=== PATIENT | male | born 1995 | race Caucasian/White ===

== ENCOUNTER 2017-11-28 12:35 | Emergency (ER) | payer OTHER, MEDICAID ==
[~2017-11-28] VITALS: Ht 175.3 cm; Wt 103.0 kg
[2017-11-28] MEDS ORDERED: [UNRECOGNIZED DRUG - OTHER] (12:52)
[2017-11-28 13:30] LABS: CLARITY URINE CLEAR (CLEAR); COLOR URINE DARK YELLOW (YELLOW); KETONES URINE NEGATIVE (NEGATIVE); LEUKOCYTE ESTERASE URINE NEGATIVE (NEGATIVE); NITRITE URINE NEGATIVE (NEGATIVE); OCCULT BLOOD URINE NEGATIVE (NEGATIVE); PROTEIN URINE NEGATIVE (NEGATIVE); SPECIFIC GRAVITY URINE 1.026 (1.005-1.030)
[2017-11-28 18:53] LABS: *AMPHETAMINES SCREEN URINE NEGATIVE (NEGATIVE); *BARBITURATES SCREEN URINE NEGATIVE (NEGATIVE); *BENZODIAZEPINES SCREEN URINE NEGATIVE (NEGATIVE); *COCAINE SCREEN URINE NEGATIVE (NEGATIVE)
[2017-11-28 18:54] LABS: CANNABINOID URINE SCREEN NEGATIVE (NEGATIVE); METHADONE URINE SCREEN NEGATIVE (NEGATIVE); OPIATES URINE SCREEN NEGATIVE (NEGATIVE); PHENCYCLIDINE URINE SCREEN NEGATIVE (NEGATIVE)
[2017-11-28 20:45] VITALS: BP 119/82
== END 2017-11-28 20:45 | disposition home or self-care (01) ==
LOC: ER 13:03
DX: N43.3 Hydrocele, unspecified (principal); E86.0 Dehydration; I86.1 Scrotal varices; R61 Generalized hyperhidrosis
CPT/HCPCS: 76870; 80305; 81003; 93976; 99285; Z7610

== ENCOUNTER 2020-08-19 18:07 | Emergency (ER) | payer OTHER, MEDICAID ==
[~2020-08-19] VITALS: Ht 175.3 cm; Wt 93.0 kg
[~2020-08-19 18:07] MED LIST: [UNRECOGNIZED DRUG - OTHER]
[2020-08-19 18:33] VITALS: BP 144/78
[2020-08-19] MEDS ORDERED: SULF1TAB48 MT (18:37)
[2020-08-19] MEDS ORDERED: CEPH500T MT (18:38)
== END 2020-08-19 18:47 | disposition home or self-care (01) ==
LOC: ER 18:07
DX: S40.861A Insect bite (nonvenomous) of right upper arm, initial encounter (principal); S80.861A Insect bite (nonvenomous), right lower leg, initial encounter; W57.XXXA Bitten or stung by nonvenomous insect and other nonvenomous arthropods, initial encounter; Y93.89 Activity, other specified; Y92.89 Other specified places as the place of occurrence of the external cause
CPT/HCPCS: 99281

== ENCOUNTER 2020-08-22 10:18 | Emergency (ER) | payer OTHER, MEDICAID ==
[~2020-08-22] VITALS: Ht 175.3 cm; Wt 95.0 kg
[~2020-08-22 10:18] MED LIST changes: +CEPH500T MT; +SULF1TAB48 MT
[2020-08-22] MEDS ORDERED: CLINDAMYCIN 600 MG in DEXTROSE 5% WATER 50 ML IV ONE (10:45)
[2020-08-22] MEDS ORDERED: SODIUM CHLORIDE 0.9% 1,000 ML IV ONE (10:45)
[2020-08-22] MEDS ORDERED: CLINDAMYCIN 600MG PREMIX 50 ML IV SCH (11:00)
[2020-08-22 11:22] LABS: HEMATOCRIT. 41.5 % (42.0-52.0); MEAN CORPUSCULAR HEMOGLOBIN 29.9 pg (28.0-32.0); MEAN CORPUSCULAR VOLUME 88.7 fL (80.0-94.0); MEAN PLATELET VOLUME 9.2 fl (7.4-10.4); PLATELET 171 x1000/uL (130-400); RED BLOOD CELL COUNT 4.68 mill/uL (4.7-6.1)
[2020-08-22 11:39] LABS: PLATELET ESTIMATE NORMAL
[2020-08-22 11:53] LABS: CHLORIDE 102 mEq/L (98-107)
[2020-08-22 12:16] VITALS: BP 113/65
[2020-08-22] MEDS ORDERED: SULF1TAB48 MT (12:55)
[2020-08-22] MEDS ORDERED: CEPH500C2 MT (12:55)
== END 2020-08-22 13:39 | disposition home or self-care (01) ==
LOC: ER 10:18
DX: L02.415 Cutaneous abscess of right lower limb (principal); I49.9 Cardiac arrhythmia, unspecified
CPT/HCPCS: 36415; 80048; 85025; 93005; 96365; 99284; J3490; Z7610

== ENCOUNTER 2020-10-12 12:27 | Emergency (ER) | payer OTHER, MEDICAID ==
[~2020-10-12] VITALS: Ht 172.7 cm; Wt 91.0 kg
[~2020-10-12 12:27] MED LIST changes: +CEPH500C2 MT; -CEPH500T MT
[2020-10-12] MEDS ORDERED: SODIUM CHLORIDE 0.9% 1,000 ML IV ONE ×3 (13:00→15:15)
[2020-10-12 13:23] LABS: BASOPHILS % 0.6 % (0.0-2.0); EOSINOPHILS % 0.1 % (0.0-5.0); HEMATOCRIT. 42.6 % (42.0-52.0); HEMOGLOBIN. 14.4 g/dL (14.0-18.0); LYMPHOCYTES % 12.5 % (20.0-50.0); MEAN CORPUSCULAR HEMOGLOBIN 29.7 pg (28.0-32.0); MEAN CORPUSCULAR VOLUME 87.9 fL (80.0-94.0); MEAN PLATELET VOLUME 8.5 fl (7.4-10.4); MONOCYTES % 8.7 % (2.0-8.0); NEUTROPHILS % 78.1 % (40.0-76.0); PLATELET 291 x1000/uL (130-400); RED BLOOD CELL COUNT 4.85 mill/uL (4.7-6.1); RED CELL DISTRIBUTION WIDTH 14.3 % (11.6-14.6)
[2020-10-12 13:28] LABS: CHLORIDE 106 mEq/L (98-107)
[2020-10-12 13:34] LABS: ETHANOL BLOOD < 10 mg/dL
[2020-10-12 13:49] LABS: CREATINE KINASE 2453 IU/L (39-308)
[2020-10-12] MEDS ORDERED: OLANZAPINE 5MG TABLET ODT PO ONE (14:15)
[2020-10-12] MEDS ORDERED: LORAZEPAM 2MG/ML CPJ IM ONE (14:30)
[2020-10-12] MEDS ORDERED: DIPHENHYDRAMINE 50MG/ML VIAL IM ONE (14:30)
[2020-10-12] MEDS ORDERED: HALOPERIDOL LACTATE 5MG/ML VIAL IM ONE (14:30)
[2020-10-12] MEDS ORDERED: ZIPRASIDONE MESYLATE 20MG/VIAL IM ONE (14:30)
[2020-10-12] MEDS ORDERED: LORAZEPAM 2MG/ML CPJ ONE (14:36)
[2020-10-12] MEDS ORDERED: DIPHENHYDRAMINE 50MG/ML VIAL ONE (14:37)
[2020-10-12 18:03] LABS: CLARITY URINE CLEAR (CLEAR); COLOR URINE DARK YELLOW (YELLOW); KETONES URINE 2+ (NEGATIVE); LEUKOCYTE ESTERASE URINE NEGATIVE (NEGATIVE); NITRITE URINE NEGATIVE (NEGATIVE); OCCULT BLOOD URINE NEGATIVE (NEGATIVE); PROTEIN URINE TRACE (NEGATIVE); SPECIFIC GRAVITY URINE 1.036 (1.005-1.030); UROBILINOGEN URINE 0.2 E.U./dL (0.2-1.0)
[2020-10-12 18:12] LABS: *AMPHETAMINES SCREEN URINE PRESUMTIVE POSITIVE (NEGATIVE); *BARBITURATES SCREEN URINE NEGATIVE (NEGATIVE); *BENZODIAZEPINES SCREEN URINE NEGATIVE (NEGATIVE); *COCAINE SCREEN URINE NEGATIVE (NEGATIVE); METHADONE URINE SCREEN NEGATIVE (NEGATIVE); OPIATES URINE SCREEN NEGATIVE (NEGATIVE)
[2020-10-12 18:14] LABS: CANNABINOID URINE SCREEN PRESUMTIVE POSITIVE (NEGATIVE); PHENCYCLIDINE URINE SCREEN NEGATIVE (NEGATIVE)
[2020-10-12 20:23] LABS: CREATINE KINASE 1971 IU/L (39-308)
[2020-10-13 06:05] VITALS: BP 111/50
== END 2020-10-13 07:21 | disposition home or self-care (01) ==
LOC: ER 12:27
DX: R45.1 Restlessness and agitation (principal); F19.10 Other psychoactive substance abuse, uncomplicated; F17.200 Nicotine dependence, unspecified, uncomplicated; F12.10 Cannabis abuse, uncomplicated; F15.10 Other stimulant abuse, uncomplicated
CPT/HCPCS: 36415; 80053; 80305; 80307; 80320; 80329; 81003; 82550; 84443; 85025; 93005; 96360; 96361; 96372; 99285; J1200; J1630; J2060; J3486; J7030; G0480

== ENCOUNTER 2020-10-14 08:07 | Emergency (ER) | payer OTHER, MEDICAID ==
[~2020-10-14] VITALS: Ht 165.1 cm; Wt 99.0 kg
[2020-10-14 08:53] LABS: KETONES URINE NEGATIVE (NEGATIVE); LEUKOCYTE ESTERASE URINE 1+ (NEGATIVE); NITRITE URINE NEGATIVE (NEGATIVE); OCCULT BLOOD URINE 3+ (NEGATIVE); PH URINE 6.5 (4.5-8.0); PROTEIN URINE 1+ (NEGATIVE)
[2020-10-14 08:55] LABS: CLARITY URINE TURBID (CLEAR); COLOR URINE BLOODY (YELLOW)
[2020-10-14 09:31] LABS: *COCAINE SCREEN URINE NEGATIVE (NEGATIVE)
[2020-10-14 09:32] LABS: *AMPHETAMINES SCREEN URINE PRESUMTIVE POSITIVE (NEGATIVE); *BARBITURATES SCREEN URINE NEGATIVE (NEGATIVE); *BENZODIAZEPINES SCREEN URINE NEGATIVE (NEGATIVE); CANNABINOID URINE SCREEN PRESUMTIVE POSITIVE (NEGATIVE); METHADONE URINE SCREEN NEGATIVE (NEGATIVE); OPIATES URINE SCREEN NEGATIVE (NEGATIVE); PHENCYCLIDINE URINE SCREEN NEGATIVE (NEGATIVE)
[2020-10-14 09:42] LABS: BASOPHILS % 0.7 % (0.0-2.0); HEMATOCRIT. 42.1 % (42.0-52.0); LYMPHOCYTES % 12.5 % (20.0-50.0); MEAN CORPUSCULAR HEMOGLOBIN 29.6 pg (28.0-32.0); MEAN CORPUSCULAR VOLUME 89.2 fL (80.0-94.0); MEAN PLATELET VOLUME 8.5 fl (7.4-10.4); MONOCYTES % 7.2 % (2.0-8.0); NEUTROPHILS % 78.6 % (40.0-76.0); PLATELET 266 x1000/uL (130-400); RED BLOOD CELL COUNT 4.71 mill/uL (4.7-6.1); RED CELL DISTRIBUTION WIDTH 14.8 % (11.6-14.6)
[2020-10-14 09:49] LABS: CHLORIDE 105 mEq/L (98-107)
[2020-10-14 12:30] VITALS: BP 130/64
== END 2020-10-14 16:48 | disposition left against medical advice (07) ==
LOC: ER 08:07
DX: N39.0 Urinary tract infection, site not specified (principal); F15.129 Other stimulant abuse with intoxication, unspecified; F23 Brief psychotic disorder; F12.10 Cannabis abuse, uncomplicated
CPT/HCPCS: 36415; 72170; 76770; 80048; 80305; 81003; 85025; 87077; 87186; 93005; 99285

== ENCOUNTER 2021-09-19 19:45 | Emergency (ER) | payer OTHER, MEDICAID ==
[~2021-09-19] VITALS: Ht 175.3 cm; Wt 100.0 kg
[2021-09-20] MEDS ORDERED: KETOROLAC 60MG/2ML VIAL IM STA (04:13)
[2021-09-20] MEDS ORDERED: BACITRACIN ZINC OINT UDPKT TOP ONE (04:15)
[2021-09-20] MEDS ORDERED: LIDOCAINE HCL/EPINEPHRINE 1%-EPI 1:100,000 20 ML VIAL INFIL ONE (04:30)
[2021-09-20] MEDS ORDERED: LIDOCAINE HCL/EPINEPHRINE 1%-EPI 1:100,000 20 ML VIAL INFIL NR (04:45)
[2021-09-20] MEDS ORDERED: IBUP-2029 PO (05:02)
[2021-09-20] MEDS ORDERED: CEPH500C2 MT (05:02)
[2021-09-20] MEDS ORDERED: SULF1TAB48 MT (05:02)
[2021-09-20 05:10] VITALS: BP 126/81
== END 2021-09-20 05:19 | disposition home or self-care (01) ==
LOC: ER 19:45
DX: L05.01 Pilonidal cyst with abscess (principal)
CPT/HCPCS: 96372; 99283; J1885; Z7610